=== PATIENT | male | born 1950 | race African-American/Black ===

== ENCOUNTER 2017-08-07 12:08 | Emergency (ER) | payer MEDICARE, OTHER ==
--- NOTE | ~2017-08-07 | CT71 ---
[facility]. [facility] A Service of [facility] RADIOLOGY TEXT RESULTS PATIENT: REBEL TRINH LOCATION: SED : 52 UNIT #: [id number] AGE: [address]: Rhianna Pedraza MD SEX: M ORDER DR: [id number] [place] [id number] E MR#: [id number] Acc #: [id number] NAME: REBEL TRINH. : 1950 SEX: M STUDY DATE/TIME: 08/07/2017 12:39 UNIT: SED ROOM: STUDY DESCRIPTION: CT Head Wo Contrast Attending Physician: Rhianna Pedraza M.D. Ordering Physician: Rhianna Pedraza M.D. Primary Care Physician: Sergio Sanchez M.D. MEDICAL IMAGING REPORT This report is preliminary unless electronic signature is present. EXAM CT head, 08/07/2017 HISTORY Swelling left side of head. Headaches left side of head for [address] head performed skull base through vertex without intravenous contrast. This CT exam was performed with one or more of the following radiation dose reduction techniques: automatic exposure control, adjustment of mA and/or kV according to patient size, and iterative reconstruction. Comparison 03/20/2014. FINDINGS The brainstem is unremarkable. The cerebellum and cerebral hemispheres show overall preservation of gonzalez matter-white matter differentiation. There are areas of subcortical periventricular and deep white matter tract hypodensities bilaterally. More pronounced than in 2015. Probably sequelae of chronic microvascular ischemia. The midline structures are nondisplaced. There is no indication of acute hemorrhage or acute cortical ischemia. The basal ganglia are unremarkable in appearance. The ventricles, cisterns and sulci normal in size and contour. There is no intra- or extraaxial mass effect or abnormal intracranial fluid collection. The intraorbital soft tissues are unremarkable. There are some scattered cavernous carotid arterial calcifications. Air-fluid level in the right maxillary sinus raising possibility of acute maxillary sinusitis. Correlate clinically. IMPRESSION 1. No clearly acute abnormality is seen in the brain. [facility] Service of [facility] RADIOLOGY TEXT RESULTS PATIENT: REBEL TRINH LOCATION: [facility] [place] : 52 UNIT #: [id number] AGE: [address]: Rhianna Pedraza MD SEX: M ORDER DR: ongoing neurologic symptoms, consider followup imaging. 2. Subcortical periventricular and deep white matter tract probable sequelae of chronic microvascular ischemia. More pronounced than in 2014. 3. Air-fluid level in the right maxillary sinus. This may be a reflection of acute right maxillary sinusitis. Correlate with clinical presentation. Dictated by... Jose Ramsey M.D. THIS IS AN ELECTRONICALLY VERIFIED REPORT Jose Ramsey M.D. at 08/08/2017 7:30 PM Mago TD: 08/07/2017 22:03 JOB #: [id number] MEDICAL IMAGING REPORT Page 1 of 1
[~2017-08-07 12:08] MED LIST: ACETAMINOPHEN PO; ACULAR10 ML OD; AMOX TR-K CLV 81 TA1 PO; ASPIRIN ENTERI325 M1 PO; ASPIRIN PO; AUGMENTIN PO; CARDIZEM CD180 M2 PO; CLARITIN10 MG PO; COREG3.125 MG PO; COREG6.25 MG PO; COUMADIN5 MG PO; DEPAKOTE ER PO; DIGOX0.25 MG PO; FIORICET1 TAB PO; FLONASE16 GM; HYDROCODON-ACE1 EAC7 PO; IBUPROFEN PO; LISINOPRIL PO; LISINOPRIL10 MG PO; MEDROL PO; METFORMIN PO; NO MEDICATIONS; OMNICEF PO; PERCOCET5/325 PO; POLYTRIM EYE DR10 ML OD; PREDNISONE PO; TOPAMAX PO; TYLOX 5/500 CAP1 CAP PO; ULTRAM PO; VICODIN 5/500 T1 TAB PO; VICODIN PO; XARELTO20 MG PO; ZYRTEC10 M1 PO
[2017-08-07] MEDS ORDERED: ASPIRIN81 MG (12:14)
[2017-08-07] MEDS ORDERED: LISINOPRIL (12:14)
== END 2017-08-07 13:28 | disposition home or self-care (01) ==
LOC: SED 12:08
DX: R51 Headache (principal); I48.91 Unspecified atrial fibrillation; F17.200 Nicotine dependence, unspecified, uncomplicated; Z88.8 Allergy status to other drugs, medicaments and biological substances
CPT/HCPCS: 36415; 70450; 85651; 99284

== ENCOUNTER 2017-08-10 01:46 | Emergency (ER) | payer MEDICARE, OTHER ==
[~2017-08-10] VITALS: Ht 188 cm; Wt 94.5 kg
[~2017-08-10 01:46] MED LIST changes: +ASPIRIN81 MG; +LISINOPRIL
== END 2017-08-10 04:32 | disposition home or self-care (01) ==
LOC: SED 01:46
DX: G44.229 Chronic tension-type headache, not intractable (principal); I10 Essential (primary) hypertension; I48.91 Unspecified atrial fibrillation; F17.200 Nicotine dependence, unspecified, uncomplicated; Z88.7 Allergy status to serum and vaccine
CPT/HCPCS: 96374; 96375; 99283; J0360; J1100; J1170; J1885; J2550